=== PATIENT | male | born 1960 ===

== ENCOUNTER 2021-07-23 15:26 | Emergency (ER) | payer SELFPAY ==
[~2021-07-23] VITALS: Ht 177.8 cm; Wt 108.9 kg
[2021-07-23] MEDS ORDERED: amLODIPine BESYLATE 5 MG TAB PO ONE (16:00)
[2021-07-23 16:45] VITALS: BP 139/95
== END 2021-07-23 16:48 ==
LOC: ER 15:32
DX: I10 Essential (primary) hypertension (principal); Z53.29 Procedure and treatment not carried out because of patient's decision for other reasons
CPT/HCPCS: 93005